=== PATIENT | male | born 1975 | race Native Hawaiian/Other Pacific Islander ===

== ENCOUNTER 2019-03-18 10:13 | Emergency (ER) | payer OTHER ==
[~2019-03-18] VITALS: Ht 185.4 cm; Wt 99.8 kg
[2019-03-18 11:07] LABS: PLATELET COUNT 164 K/uL (142-355)
[2019-03-18 11:14] LABS: POTASSIUM 3.4 mmol/L (3.6-5.2)
[2019-03-18 13:10] VITALS: TEMP 100.5
== END 2019-03-18 13:11 | disposition home or self-care (01) ==
LOC: ED 10:13
PROVIDERS: Family Medicine
DX: J09.X2 Influenza due to identified novel influenza A virus with other respiratory manifestations (principal); E87.6 Hypokalemia; E87.1 Hypo-osmolality and hyponatremia
CPT/HCPCS: 80053; 85027; 87502; 99283